=== PATIENT | male | born 1940 | race Caucasian/White ===

== ENCOUNTER 2019-09-07 09:31 | Outpatient (CLI) | payer MEDICARE, OTHER ==
[2019-09-07 10:58] LABS: BASOPHILS # (AUTO) 0.02 x10^3/uL (0-0.1); BASOPHILS % (AUTO) 0 % (0-1); EOSINOPHILS # (AUTO) 0.06 x10^3/uL (0-0.4); EOSINOPHILS % (AUTO) 1 % (1-7); LYMPHOCYTES # (AUTO) 1.49 x10^3/uL (1-3.4); LYMPHOCYTES % (AUTO) 30 % (22-44); MD NO; MEAN CORPUSCULAR HEMOGLOBIN 32.1 pg (27.5-34.5); MEAN CORPUSCULAR VOLUME 94.4 fL (81-97); MEAN PLATELET VOLUME 8.8 fL (7.4-10.4); MONOCYTES # (AUTO) 0.43 x10^3/uL (0.2-0.8); MONOCYTES % (AUTO) 9 % (2-9); NEUTROPHILS # (AUTO) 3.02 x10^3/uL (1.8-6.8); NEUTROPHILS % (AUTO) 60 % (42-75); PLATELET COUNT 162 x10^3/uL (130-400); RED BLOOD COUNT 4.78 x10^6/uL (4.38-5.82); RED CELL DISTRIBUTION WIDTH 13.2 % (9.4-14.8)
[2019-09-07] MEDS ORDERED: None at This Time (11:13)
[2019-09-07 12:29] LABS: CHLORIDE 111 mmol/L (98-107)
[2019-09-07 12:38] LABS: ALANINE AMINOTRANSFERASE 23 U/L (12-78); ALBUMIN 4.1 g/dL (3.4-5.0); ALKALINE PHOSPHATASE 60 U/L (45-117); ANION GAP 6 mmol/L (5-15); BILIRUBIN,TOTAL 0.9 mg/dL (0.2-1.0); CALCIUM 8.9 mg/dL (8.5-10.1); CREATININE 1.03 mg/dL (0.7-1.3); TOTAL PROTEIN 7.4 g/dL (6.4-8.2)
[2019-09-13] MEDS ORDERED: TRANEXAMIC ACID 100 MG/ML, 10ML ONE ×2 (06:23)
[2019-09-13] MEDS ORDERED: ROPIvacaine/PF 0.2%, 20 ML ONE (06:23)
[2019-09-13] MEDS ORDERED: KETOROLAC 60 MG/2 ML ONE (06:23)
[2019-09-13] MEDS ORDERED: VANCOMYCIN 1,000 MG ONE (06:23)
[2019-09-13] MEDS ORDERED: EPINEPHRINE 1 MG/ML, 1ML ONE (06:24)
== END 2019-09-07 23:59 | disposition home or self-care (01) ==
LOC: STAR 09:31
PROVIDERS: ATTEND Orthopaedic Surgery
DX: Z01.818 Encounter for other preprocedural examination (principal); M16.11 Unilateral primary osteoarthritis, right hip
CPT/HCPCS: 36415; 80053; 85025; 87081; 93005

== ENCOUNTER 2019-09-13 08:15 | Observation (INO) | payer MEDICARE, OTHER ==
[~2019-09-13] VITALS: Ht 165.1 cm; Wt 84.2 kg
[~2019-09-13 08:15] MED LIST: None at This Time
[2019-09-13] MEDS ORDERED: LACTATED RINGERS 1,000 ML IV SCH (08:32)
[2019-09-13 08:46] VITALS: BP 131/74
[2019-09-13] MEDS ORDERED: GABAPENTIN 300 MG CAPSULE PO ONE (09:00)
[2019-09-13] MEDS ORDERED: LIDOCAINE-MPF 1%, 2ML INFIL ONE (09:00)
[2019-09-13] MEDS ORDERED: ACETAMINOPHEN 500 MG TABLET PO ONE (09:00)
[2019-09-13] MEDS ORDERED: FENTANYL PF 250 MCG/5ML ONE (09:47)
[2019-09-13] MEDS ORDERED: SUCCINYLCHOLINE 20 MG/ML, 10ML ONE (10:57)
[2019-09-13] MEDS ORDERED: ROCURONIUM 10 MG/ML,10ML ONE (10:57)
[2019-09-13] MEDS ORDERED: PROMETHAZINE 25 MG/ML, 1ML IV PRN (11:30)
[2019-09-13] MEDS ORDERED: HYDROmorphone 1 MG/ML, 1ML INJ IVPush PRN (11:30)
[2019-09-13] MEDS ORDERED: MEPERIDINE/PF 25MG/ML,1ML IVPush PRN (11:30)
[2019-09-13] MEDS ORDERED: OXYcodone 5 MG/5 ML ORAL.SOL UDC PO PRN (11:30)
[2019-09-13] MEDS ORDERED: MIDAZOLAM 1 MG/ML, 2ML IV PRN (11:30)
[2019-09-13] MEDS ORDERED: hydrALAzine 20 MG/ML, 1ML IV PRN (11:30)
[2019-09-13] MEDS ORDERED: METOPROLOL 1 MG/ML, 5ML IV PRN (11:30)
[2019-09-13] MEDS ORDERED: ALBUTEROL/IPRATROPIUM 2.5MG/0.5MG, 3 ML NPPB PRN (11:30)
[2019-09-13] MEDS ORDERED: DEXAMETHASONE 4 MG/ML, 1ML ONE (11:34)
[2019-09-13] MEDS ORDERED: PROPOFOL 10 MG/ML, 20ML ONE (11:34)
[2019-09-13] MEDS ORDERED: CEFAZOLIN 1,000 MG ONE (11:34)
[2019-09-13] MEDS ORDERED: ONDANSETRON 2MG/ML, 2ML ONE (11:34)
[2019-09-13] MEDS ORDERED: BISACODYL 10 MG SUPP PR PRN (12:30)
[2019-09-13] MEDS ORDERED: ALUMINUM/MAG/SIMETHICONE 30 ML UDC PO PRN (12:30)
[2019-09-13] MEDS ORDERED: ONDANSETRON 4 MG TABLET PO PRN (12:30)
[2019-09-13] MEDS ORDERED: PROMETHAZINE 12.5 MG SUPP PR PRN (12:30)
[2019-09-13] MEDS ORDERED: HYDROmorphone 2 MG/ML, 1ML IVPush PRN (12:30)
[2019-09-13] MEDS ORDERED: PROMETHAZINE 25 MG/ML, 1ML IM PRN (12:30)
[2019-09-13] MEDS ORDERED: ZOLPIDEM 5MG TABLET PO PRN (12:30)
[2019-09-13] MEDS ORDERED: DIAZEPAM 5 MG TABLET PO PRN (12:30)
[2019-09-13] MEDS ORDERED: PSYLLIUM PACKET PO PRN (12:30)
[2019-09-13] MEDS ORDERED: SENNA/DOCUSATE TABLET PO PRN (12:30)
[2019-09-13] MEDS ORDERED: DIPHENHYDRAMINE 50 MG CAPSULE PO PRN (12:30)
[2019-09-13] MEDS ORDERED: OXYcodone IR 5MG TABLET PO PRN (12:30)
[2019-09-13] MEDS ORDERED: SCOPOLAMINE PATCH, 1.5MG PATCH.TD72 TD SCH (12:30)
[2019-09-13] MEDS ORDERED: MAGNESIUM HYDROXIDE 8%, 30ML UDC PO PRN (12:30)
[2019-09-13] MEDS ORDERED: ONDANSETRON 2MG/ML, 2ML IV PRN (12:30)
[2019-09-13] MEDS ORDERED: FENTANYL PF 100 MCG/2ML ONE (12:44)
[2019-09-13] MEDS: FENTANYL PF 100 MCG/2ML IV PRN ×3 (12:45→13:22)
[2019-09-13] MEDS ORDERED: TRANEXAMIC ACID 1,000 MG in SODIUM CHLORIDE 0.9% 100 ML IVPB ONE (12:45)
[2019-09-13] MEDS ORDERED: MEPERIDINE/PF 25MG/ML,1ML ONE (13:04)
[2019-09-13] MEDS ORDERED: OXYcodone 5 MG/5 ML ORAL.SOL UDC ONE (13:24)
[2019-09-13] MEDS ORDERED: BUPIVACAINE/PF 0.25% ONE (13:52)
[2019-09-13] MEDS ORDERED: LIDOCAINE-MPF 2% ,5ML ONE (13:52)
[2019-09-13 14:00] VITALS: BP 142/75
[2019-09-13] MEDS: D5%-0.45% NACL 1,000 ML IV SCH (14:19)
[2019-09-13] MEDS ORDERED: DIPHENHYDRAMINE 25 MG CAPSULE PO PRN (14:30)
[2019-09-13] MEDS: ACETAMINOPHEN 500 MG TABLET PO SCH ×2 (15:03→20:40)
[2019-09-13] MEDS: KETOROLAC 30 MG/1 ML IV SCH (17:30)
[2019-09-13] MEDS: CALCIUM/VITAMIN D3 250-125 TABLET PO SCH (17:30)
[2019-09-13] MEDS: ASPIRIN 81 MG TABLET EC PO SCH ×2 (17:30→20:12)
[2019-09-13] MEDS: FERROUS SULFATE 325 MG TABLET PO SCH (17:30)
[2019-09-13 19:41] VITALS: BP 149/80
[2019-09-13] MEDS: DOCUSATE 100 MG CAPSULE PO SCH (20:12)
[2019-09-13] MEDS: CEFAZOLIN PMX 2GM/50ML 50 ML IVPB SCH (20:12)
[2019-09-14 00:35] VITALS: BP 114/62
[2019-09-14] MEDS: D5%-0.45% NACL 1,000 ML IV SCH (01:40)
[2019-09-14] MEDS: KETOROLAC 30 MG/1 ML IV SCH ×2 (03:10→10:35)
[2019-09-14] MEDS: CEFAZOLIN PMX 2GM/50ML 50 ML IVPB SCH (03:10)
[2019-09-14] MEDS: ACETAMINOPHEN 500 MG TABLET PO SCH ×2 (03:10→09:29)
[2019-09-14 03:39] VITALS: BP 106/53
[2019-09-14] MEDS ORDERED: DEXAMETHASONE 4 MG/ML, 1ML IVPush ONE (06:00)
[2019-09-14 07:49] VITALS: BP 110/56
[2019-09-14] MEDS: DOCUSATE 100 MG CAPSULE PO SCH (07:58)
[2019-09-14] MEDS: ASPIRIN 81 MG TABLET EC PO SCH (07:58)
[2019-09-14] MEDS: FERROUS SULFATE 325 MG TABLET PO SCH (07:58)
[2019-09-14] MEDS: CALCIUM/VITAMIN D3 250-125 TABLET PO SCH ×2 (08:03→12:00)
[2019-09-14] MEDS ORDERED: ASCORBIC ACID 500 MG TABLET PO SCH (09:00)
[2019-09-14] MEDS ORDERED: MULTIVITAMINS/MINERALS TABLET PO SCH (09:00)
[2019-09-14] MEDS ORDERED: ASPI81TA45 PO (12:57)
== END 2019-09-14 13:09 | disposition home or self-care (01) ==
LOC: ORIP 08:15 → INTOOBSV 08:15 → 3WST 13:52 → DCLOUNGE 09-14 12:58
PROVIDERS: ADMIT Orthopaedic Surgery; ATTEND Orthopaedic Surgery
DX: M16.11 Unilateral primary osteoarthritis, right hip (principal); M51.36 Other intervertebral disc degeneration, lumbar region; Z87.891 Personal history of nicotine dependence
CPT/HCPCS: 27130; 36415; 72170; 85014; 85018; 86850; 86900; 96365; 96366; 96375; 96376; 97161; 97165; C1713; C1776; G0378; J0171; J0330; J0690; J1100; J1885; J2175; J2405; J2704; J2795; J3010; J3370; J3490; J7120

== ENCOUNTER → 2019-12-11 | Outpatient (CLI) | payer MEDICARE, OTHER ==
[~2019-12-11] MED LIST changes: +ASPI81TA45 PO
== END | disposition home or self-care (01) ==
LOC: CFH 15:23
PROVIDERS: ATTEND Neurological Surgery
DX: S09.90XA Unspecified injury of head, initial encounter (principal); G96.0 Cerebrospinal fluid leak; X58.XXXA Exposure to other specified factors, initial encounter; Y93.89 Activity, other specified; Y92.89 Other specified places as the place of occurrence of the external cause; Y99.8 Other external cause status
CPT/HCPCS: 70450